=== PATIENT | male | born 1940 | race Caucasian/White ===

== ENCOUNTER → 2018-09-11 15:40 | Outpatient (CLI) | payer OTHER, MEDICARE, SELFPAY ==
[2018-09-11 15:53] LABS: Basophils % 0.4 % (0.1-2.0); Eosinophils # 0.3 K/mm3 (0.0-0.4); Eosinophils % 3.3 % (0.1-12.0); Hematocrit 35.4 % (42.0-52.0); Hemoglobin 10.8 g/dL (14.1-18.0); Lymphocytes # 1.4 K/mm3 (0.7-4.5); Lymphocytes % 15.6 % (10-50); Mean Corpuscular HGB Conc 30.4 g/dL (31.8-35.4); Mean Corpuscular Hemoglobin 27.4 pg (27.0-31.2); Mean Corpuscular Volume 90.1 fl (80-94); Mean Platelet Volume 6.9 fl (7.4-10.4); Monocytes # 0.5 K/mm3 (0.1-1.0); Monocytes % 5.8 % (1.7-9.3); Neutrophils # 6.8 K/mm3 (1.8-7.8); Neutrophils % 74.8 % (37.0-80.0); Platelet Count 368 K/mm3 (142-424); Red Blood Count 3.93 M/mm3 (4.60-6.20); Red Cell Distribution Width 15.7 % (11.5-17.5); White Blood Count 9.1 K/mm3 (4.8-10.8)
[2018-09-11 15:59] LABS: Prothrombin Time 16.3 seconds (9.4-11.8)
[2018-09-11 16:31] LABS: Anion Gap 7.3 mEq/L (5-15); Blood Urea Nitrogen 11 mg/dL (7-18); Calcium 8.2 mg/dL (8.5-10.1); Carbon Dioxide 35 mmol/L (21.0-32.0); Chloride 99 mmol/L (98-107); Creatinine,Serum 0.55 mg/dL (0.70-1.30); Digoxin 0.86 ng/mL (1.15-2.56); Estimated Glomerular Filt Rate 145 ml/min (>60); GFR (African American) 175 ML/MIN (>60); Glucose 98 mg/dL (74-106); Potassium 4.3 mmoL/L (3.5-5.1); Sodium 137 mmol/L (136-145)
== END ==
PROVIDERS: Visit Provider Emergency Medicine
DX: I50.9 Heart failure, unspecified (principal)
CPT/HCPCS: 80048; 80162; 85025; 85610